=== PATIENT | female | born 1955 | race Caucasian/White ===

== ENCOUNTER 2024-09-16 14:27 | Emergency (ER) | payer MEDICARE, OTHER, SELFPAY ==
[2024-09-16 14:35] VITALS: BP 154/70
[2024-09-16 15:14] LABS: % Basophils 0.3 % (0-2); % Eosinophils 1.4 % (0-6); % Immature Granulocytes 0.4 % (0-0.5); % Lymphocytes 12.2 % (20.5-51.1); % Monocytes 9.1 % (1.7-9.3); % Neutrophils 76.6 % (42.2-75.2); Absolute Eosinophils 0.1 10^3/uL (0-0.7); Absolute Lymphocytes 1.2 10^3/uL (1.2-3.4); Absolute Monocytes 0.9 10^3/uL (0.1-0.6); Absolute Neutrophils 7.4 10^3/uL (1.4-6.5); Hematocrit 39.8 % (37.0-47.0); Hemoglobin 13.6 g/dL (12.0-16.0); Mean Corp Hgb Conc. 34.2 g/dL (33.0-37.0); Mean Corpuscular Hgb 30.4 pg (27.0-31.0); Mean Corpuscular Volume 88.8 fL (81.0-99.0); Mean Platelet Volume 9.6 fL (7.4-10.4); Nucleated Red Blood Cells % 0 %; Platelet Count 216 10^3/uL (130-400); Red Blood Cell Count 4.48 10^6/uL (4.20-5.40); White Blood Cell Count 9.7 10^3/uL (4.8-10.8)
[2024-09-16 15:25] LABS: ALT (SGPT) 47 U/L (0-35); AST (SGOT) 38 U/L (14-36); Albumin 4.3 g/dl (3.5-5.0); Alkaline Phosphatase 112 U/L (38-126); Blood Urea Nitrogen 20 mg/dl (7-17); Calcium 9.4 mg/dl (8.4-10.2); Carbon Dioxide 28 mmol/L (22-30); Chloride 100 mmol/L (98-107); Glucose 103 mg/dl (70-99); Potassium 3.7 mmol/L (3.5-5.1); Sodium 140 mmol/L (135-145); Total Bilirubin 0.3 mg/dl (0.2-1.3); Total Protein 6.9 g/dl (6.3-8.2); eGFR > 60.00
[2024-09-16 15:38] LABS: INR 1.03; PT 13.5 Sec (11.4-14.6)
[2024-09-16 15:55] LABS: APTT 28.7 Sec (23.4-35.0)
--- NOTE | 2024-09-16 16:49 | ED.GENMED ---
History of Present Illness
General
Chief Complaint: Rectal Bleeding
Source: patient
Exam Limitations: none
Time Seen by Provider: 09/16/24 16:13
Nursing documentation reviewed up to this point in time: agreed with
History of Present Illness
History of Present Illness:
Patient presents to ED secondary to 3 episodes of bloody diarrhea, since this morning. Denies abdominal pain. Denies nausea or vomiting. Denies recent change in medications or diet. Denies previous history of similar symptoms. Patient reports
having received normal colonoscopy 1 year ago. Of note, patient is taking naproxen twice daily, which she has been doing for the past 2 years secondary to joint pain. Denies dizziness. Denies weakness. Denies shortness of breath.
Past History
Past History
ED Past Medical History: Other and Other
ED Past Surgical History: Other
Social History
Tobacco: Smoker
Alcohol: Occasional
Personal:
Living: with family
Employment: Employed
Family History
Family History: Other (Noncontributory)
Review of Systems
Review of Systems
Allergies reviewed?: Yes
All Other Systems: ROS reviewed and negative except as documented in HPI and ROS
Constitutional: Reports no symptoms
EENT: Reports no symptoms
Respiratory: Reports no symptoms; Denies trouble breathing
Cardiac: Reports no symptoms
ABD/GI: Reports bloody stools; Denies abdominal pain, nausea or vomiting
: Reports no symptoms
Musculoskeletal: Reports no symptoms
Skin: Reports no symptoms
Neurological: Reports no symptoms
Phy Exam
Physical Exam
Physical Exam:
Physical Exam
General: no apparent distress, not acutely ill. afebrile
Head: nc/at. eomi
Neck: supple. no meningeal signs.
Heart: s1/s2 regular rate and rhythm, no murmur. equal radial pulses.
Lungs: no acute respiratory distress. clear bilaterally
Abdomen: normal bowel sounds. not tender. rectal exam ([place], at bedside): nonbleeding external hemorrhoid. Heme positive stool, containing small amount of blood clots with brown stool.
Neuro: alert and oriented. no focal neurological deficits
Skin: no rash
Psychiatric: well kept. interactive and cooperative
Extremities: no edema. no calf tenderness.
Course
Orders/Labs/Results
Orders:
Orders
09/16/24 14:43
PT/INR [Prothrombin Time] Urgent
PTT Urgent
09/16/24 14:44
Type+Screen Urgent
Complete Blood Count/With Diff Urgent
Comprehensive Metabolic Panel Urgent
Abnormal Lab Results
09/16/24
14:44
Absolute Neuts (auto) 7.4 H 10^3/uL
(1.4-6.5)
Absolute Monos (auto) 0.9 H 10^3/uL
(0.1-0.6)
Neutrophils % 76.6 H %
(42.2-75.2)
Lymphocytes % 12.2 L %
(20.5-51.1)
BUN 20 H mg/dl
(7-17)
Glucose 103 H mg/dl
(70-99)
AST 38 H U/L
(14-36)
ALT 47 H U/L
(0-35)
09/16/24 14:44
09/16/24 14:44
Vital Signs
Initial and Last Documented VS:
Initial Vital Signs
Temp Pulse Resp BP Pulse Ox
98.6 F 97 18 154/70 97
09/16/24 14:35 09/16/24 14:35 09/16/24 14:35 09/16/24 14:35 09/16/24 14:35
Last Documented Vital Signs
Temp Pulse Resp BP Pulse Ox
98.4 F 99 16 147/72 100
09/16/24 17:25 09/16/24 17:25 09/16/24 17:25 09/16/24 17:25 09/16/24 17:25
MDM/Problems Addressed
MDM/Problems Addressed:
H&H stable. Patient otherwise remains afebrile, hematocrit stable, and nontoxic-appearing. Patient without any evidence or symptoms concerning for an acute significant blood loss. As patient has an ongoing relationship with GI physician at
different hospital, decision made to discharge patient home at this time, with recommendation to stop using naproxen short-term, along with close GI follow-up as an outpatient. Advised to return to ED with any worsening symptoms. Patient expresses
understanding at time of discharge.
*Critical Care Note
Total Time (30-74mins, 75-104mins- exclusive of procedures): Not Applicable
ED Attending Note
-
Portions of this chart may have been created with voice recognition software.� Occasional wrong word or��sound alike� substitutions may have occurred due to the inherent limitations of voice recognition software.
Discharge Plan
Departure
Patient Disposition: Home (Routine Discharge)
Date of Disposition: 09/16/24
Time of Disposition: 16:53
Patient with high blood pressure during this ER visit?: Yes
Condition: Good
Discharge Problem:
Bloody diarrhea
Instructions: Bloody Stools, Adult (DC)
Prescriptions:
No Action
lamotrigine [Lamictal] 200 MG tablet
250 mg PO DAILY
duloxetine 60 MG capsule,delayed release(DR/EC)
60 mg PO BID
Losartan
100 mg PO DAILY
Metoprolol
25 mg PO DAILY
dicyclomine 10 MG capsule
10 mg PO QIDPRN PRN (Reason: pain)
multivitamin 1 EACH tablet
1 ea PO DAILY
clonazepam 0.5 MG tablet
0.5 mg PO Q6HPRN PRN (Reason: anxiety)
cholecalciferol (vitamin D3) 1,000 UNITS tablet
1,000 units PO DAILY
multivit [id number] [Hair, Skin and Nails Advanced] 1 EACH tablet
1 ea PO DAILY
Hydrochlorothiazide
1 tab PO DAILY
doxycycline hyclate 100 MG tablet
100 mg PO BID Qty: 14 0RF
Referrals:
Denise Joe CRNP [Family Provider] -
Activity Restrictions/Additional Instructions:
As discussed, please discontinue use of naproxen, as well as close follow-up with your GI physician. Please return to ED with worsening symptoms, i.e. dizziness/weakness/shortness of breath/significantly worsening bloody stool.
Interventions
Interventions:
*Risk Screen - Suicide Last Done: 09/16/24 14:35
*General Assessment Last Done: 09/16/24 14:35
*Neglect/Abuse Screening Last Done: 09/16/24 14:35
ED- Fall Risk Assessment Last Done: 09/16/24 16:24
*ED COVID-19 Vaccine History Last Done: 09/16/24 16:22
*Nursing Disposition Last Done: 09/16/24 17:25
ZU-Tnklfy-Afchfznihc Assessment Last Done: 09/16/24 16:24
ED- Cardiac Assessment Last Done: 09/16/24 16:24
ED- Pulmonary Assessment Last Done: 09/16/24 16:24
Discharge Date and Time
Discharge Date/Time: 09/16/24 17:26
Print Language: EMIRATI
[2024-09-16 17:25] VITALS: BP 147/72
== END 2024-09-16 17:26 | disposition home or self-care (01) ==
LOC: EMR 14:27
PROVIDERS: EMERGENCY PHYSICIAN Emergency Medicine; FAMILY PHYSICIAN Nurse Practitioner Primary Care
DX: K92.1 Melena (principal); R19.7 Diarrhea, unspecified; F17.200 Nicotine dependence, unspecified, uncomplicated
CPT/HCPCS: 99283; 80053; 85025; 85610; 85730; 86850; 86900; 86901